=== PATIENT | male | born 1970 | race Caucasian/White ===

== ENCOUNTER 2017-09-07 11:48 | Day surgery (SDC) | payer OTHER ==
[~2017-09-07 11:48] MED LIST: Betamethasone Acetate/Betamethasone Sod Phosphate 30 MG/5 ML MDV ONE; Iopamidol 408 MG/ML 50 ML SDV ONE; Lidocaine 1% 0 ML ONE; Lidocaine 2% 5 ML SDV ONE; Ropivacaine 0.5% 5 MG/ML 30 ML SDV ONE
--- NOTE | 2017-09-07 16:31 | OR ---
SURGEON: Franchesca Saeed D.O. DATE OF PROCEDURE: 09/07/2017 OR STAFF PRESENT: 1. Serge Calixto RN. 2. Molly Mi RN. 3. Debby Templeton RT. WOUND CLASSIFICATION: I. PREOPERATIVE DIAGNOSES: 1. Lumbar facet arthropathy. 2. Lumbar degenerative disk disease. 3. Chronic low back pain. POSTOPERATIVE DIAGNOSES: 1. Lumbar facet arthropathy. 2. Lumbar degenerative disk disease. 3. Chronic low back pain. PROCEDURES PERFORMED: 1. Bilateral L4, L5, S1 medial branch blocks. 2. Fluoroscopic guidance for needle placement. 3. Local with oral valium for sedation. SCREENING QUESTIONS: The patient answered "No" to all the following questions: 1. Are you allergic to iodine, Betadine or latex? 2. Do you have a bleeding disorder? 3. Are you on anti-inflammatories or blood thinners? 4. Do you have any current local or systemic infections? DESCRIPTION OF PROCEDURE: The patient had the procedure thoroughly explained including risks, benefits and alternatives. Consent was signed in my clinic indicating understanding and willingness to proceed. The patient presented to [facility] and was escorted to the dressing room to disrobe and change into a hospital gown. Preoperative history and screening were performed by my nurse. Vital signs were taken and stable. The patient reported that Valium 10 milligrams was taken prior to the procedure. The patient was brought back to the procedure room and placed in the prone position on the procedure room table. A pillow was placed under the abdomen in order to flatten the lumbar lordosis. The back was prepped with ChloraPrep and sterilely draped. All personnel in the procedure room were dressed in appropriate attire including surgical scrubs, head and shoe covers. This was to ensure sterility while in the treatment room. During the time fluoroscopy was in use all personnel in the operating room wore lead pierce with thyroid collars. Sterile technique was used during the procedure. The fluoroscope was positioned to provide a right oblique view. Then, the right L3 medial branch block was begun by anesthetizing the skin and soft tissues with 2 cubic centimeters of 2% Preservative-Free Lidocaine with a 25-gauge 1.5 inch needle. There were no signs of infection at the site of needle skin insertions. Using fluoroscopic guidance a sterile 22-gauge 3.5 inch spinal needle was positioned at the junction of the transverse process with the superior articular process of the L4 vertebral body. Precise needle placement was confirmed by fluoroscopy and 0.2 cubic centimeters of Isovue-200 contrast dye which was injected through microbore tubing under live fluoroscopy and showed no intravascular flow pattern and adequate flow over the target L3 medial branch. Then, 0.5 cubic centimeters of 0.5% Ropivacaine Preservative-Free was injected slowly without complications after negative aspiration. Then, the fluoroscope was positioned to provide a right oblique view for the right L4 medial branch. This was begun by anesthetizing the skin and soft tissues. The fluoroscope was positioned and a sterile 22-gauge 3.5 inch needle was placed at the junction of the transverse process in the superior articular process of the L5 vertebral body. Precise needle placement was confirmed by fluoroscopy. Then, 0.2 cubic centimeters of Isovue-200 contrast dye was injected through microbore tubing under live fluoroscopy and showed no intravascular flow pattern and adequate flow over the target medial branch. After negative aspiration, 0.5 cubic centimeters of 0.5% Ropivacaine was injected without complications. The fluoroscope was then positioned to provide a right L5 dorsal ramus block. This was begun by anesthetizing the skin and soft tissues over the right sacral sulcus. Then, using fluoroscopic guidance, a sterile 22-gauge 3.5 inch spinal needle was positioned at the right sacral ala. Precise needle placement was confirmed by fluoroscopy in AP and oblique views, and 0.2 cubic centimeters of Isovue-200 contrast dye was injected through microbore tubing under live fluoroscopy and showed no intravascular flow pattern and adequate flow over the target nerves. After negative aspiration, 0.5 cubic centimeters of 0.5% Ropivacaine was injected. No complications were noted. Then, attention was turned to the left side. The fluoroscope was positioned to provide a left oblique view for the left L3 medial branch block. This was begun by anesthetizing the skin and soft tissues. Then, a 22-gauge 3.5 inch needle was positioned at the junction of the transverse process and the superior articular process at the left L4 vertebral body. Precise needle placement was confirmed by fluoroscopy with 0.2 cubic centimeters of Isovue-200 contrast dye injected through microbore tubing under live fluoroscopy showing no intravascular flow pattern and adequate flow over the target medial branch of L3 on the left. After negative aspiration, 0.5 cubic centimeters of 0.5% Ropivacaine was injected without complications. The fluoroscope was positioned then to provide a left L4 medial branch block. The skin was anesthetized. Then, a 22-gauge 3.5 inch spinal needle was positioned at the junction of the transverse process in the superior articular process of the L5 vertebral body on the left. Precise needle placement was confirmed by fluoroscopy and with 0.2 cubic centimeters of Isovue-200 contrast dye injected through microbore tubing showing no intravascular flow pattern and adequate flow over the target medial branch of L4 on the left. Then, 0.5 cubic centimeters of 0.5% Ropivacaine was injected after negative aspiration without complications. Then, the fluoroscope was positioned for the left L5 dorsal ramus block. This was begun by anesthetizing the skin and soft tissues. Then, with fluoroscopic guidance a sterile 22-gauge 3.5 inch spinal needle was positioned at the left sacral ala. Precise needle placement was confirmed with 0.2 cubic centimeters of Isovue-200 contrast dye injected through microbore tubing under live fluoroscopy showing no intravascular flow pattern and adequate flow over the target L5 nerve.Then 0.5 cc of ropivicaine was injected after negative aspiration. The procedure was well tolerated and vital signs were stable during and after the procedure. The staff escorted the patient to the recovery area. The patient was given both oral and written discharge and followup instructions. The patient will follow up with a pain diary which will be evaluated over this evening doing things that would normally cause pain. We will evaluate the efficacy of the diagnostic lumbar medial branch blocks as the patient will follow up in the clinic the next day with pain diary. The patient was given both oral and written discharge and followup instructions. The patient voiced understanding including understanding of those signs and symptoms that would require emergency care and knows how to contact the office if there are any questions or concerns in the meantime. PREOPERATIVE PAIN: 06/24. POSTOPERATIVE PAIN: 02/24. LUCIANA / BARBARA /[id number] SUSSY
== END 2017-09-07 14:00 | disposition home or self-care (01) ==
LOC: MW.SDS 11:48
PROVIDERS: ATTEND Anesthesiology
DX: G89.29 Other chronic pain (principal); M51.36 Other intervertebral disc degeneration, lumbar region; M47.816 Spondylosis without myelopathy or radiculopathy, lumbar region; Z88.2 Allergy status to sulfonamides; Z91.013 Allergy to seafood
CPT/HCPCS: 64493; 64494; J0702; J2795; Q9966

== ENCOUNTER 2023-06-12 01:05 | Emergency (ER) | payer OTHER ==
[2023-06-12 01:32] LABS: BASOPHILS ABSOLUTE AUTO 0.11 K/uL (0.00-0.20); EOSINOPHILS ABSOLUTE AUTO 0.44 K/uL (0.00-0.45); EOSINOPHILS PERCENT AUTO 4.1 % (0.0-6.0); HEMATOCRIT 45.1 % (42.0-52.0); HEMOGLOBIN 16.1 g/dL (14.0-18.0); IMMATURE GRAN ABSOLUTE AUTO 0.02 K/uL (0.00-0.05); IMMATURE GRAN PERCENT AUTO 0.2 % (0.0-0.4); LYMPHOCYTES ABSOLUTE AUTO 3.88 K/uL (1.00-4.80); MEAN CORPUSCULAR HEMOGLOBIN 31.8 pg (28.0-32.0); MEAN CORPUSCULAR HGB CONC 35.7 g/dL (32.0-36.0); MEAN PLATELET VOLUME 11.4 fL (9.4-12.4); MONOCYTES PERCENT AUTO 9.3 % (0.0-8.0); NEUTROPHILS ABSOLUTE AUTO 5.32 K/uL (1.80-7.70); NEUTROPHILS PERCENT AUTO 49.4 % (41.0-71.0); PLATELET COUNT,PLT 322 K/uL (150-400); RED BLOOD CELL COUNT 5.07 M/uL (4.52-5.90); WHITE BLOOD CELL COUNT,WBC 10.77 K/uL (3.9-11.3)
[2023-06-12 01:45] LABS: INR 0.99 (0.86-1.11); PTT,PARTIAL THROMBOPLSTIN TIME 23.1 SEC (23.9-30.7)
[2023-06-12] MEDS: Tenecteplase 50 MG Kit IV STA (01:51)
[2023-06-12] MEDS: Enoxaparin 100 MG/1 ML Syringe SUBCUT ONE (01:51)
[2023-06-12] MEDS: Ondansetron 4 MG/2 ML SDV IVPUSH ONE (01:52)
[2023-06-12] MEDS: Labetalol 100 MG/20 ML MDV IVPUSH ONE (01:52)
[2023-06-12] MEDS: Aspirin 81 MG Tab.Chew PO ONE (01:52)
[2023-06-12] MEDS: Sodium Chloride 0.9% 1,000 ML IV ONE (01:52)
[2023-06-12] MEDS: Morphine 4 MG/ML Syringe IVPUSH ONE ×2 (01:53→02:41)
[2023-06-12] MEDS: Clopidogrel 75 MG Tab PO ONE ×2 (01:54→02:52)
[2023-06-12 01:59] LABS: ALANINE AMINOTRANSFERASE,ALT 42 IU/L (14-63); ALBUMIN 3.4 g/dL (3.4-5.0); ALKALINE PHOSPHATASE 82 U/L (46-116); ASPARTATE AMNIOTRANSFERASE,AST 24 IU/L (15-37); BILIRUBIN TOTAL 0.7 mg/dL (0.2-1.0); BLOOD UREA NITROGEN,BUN 12 mg/dL (7.0-18.0); CALCIUM 8.7 mg/dL (8.5-10.1); CARBON DIOXIDE,CO2 24.1 mmol/L (21.0-32.0); CHLORIDE,CL 104 mmol/L (98-107); CREATININE 1.3 mg/dL (0.8-1.3); GLUCOSE RANDOM 208 mg/dL (74-106); MAGNESIUM 1.8 mg/dL (1.8-2.4); POTASSIUM,K 2.9 mmol/L (3.5-5.1); PROTEIN TOTAL,TP 6.8 g/dL (6.4-8.2); SODIUM,NA 141 mmol/L (136-148)
[2023-06-12 02:01] LABS: ESTIMATED GFR 66 mL/min (>60)
[2023-06-12] MEDS: Heparin Sodium 5,000 Units/ML Vial IVPUSH ONE (02:28)
[2023-06-12] MEDS: Heparin Sodium/0.45% NaCl 500 ML IV SCH (02:32)
[2023-06-12] MEDS: Alum Hydro/Mag Hydro/Simeth XS 15 ML, Lidocaine 2% 5 ML PO ONE (02:57)
[2023-06-12] MEDS: Nitroglycerin 0.4 MG Tab.SL SL ONE (03:31)
[2023-06-12] MEDS: Furosemide 20 MG/2 ML VIAL IVPUSH ONE (03:32)
[2023-06-12] MEDS: Etomidate 2 MG/ML 20 ML SDV IVPUSH ONE (04:05)
[2023-06-12] MEDS: Succinylcholine 200 MG/10 ML MDV IV STA (04:06)
[2023-06-12 04:47] LABS: BASE EXCESS ARTERIAL -10.9 (-2.0-3.0); BICARBONATE,ARTERIAL 18 mEq/L (22-26); PCO2 ARTERIAL 51 mmHG (35-45); PO2 ARTERIAL 57 mmHG (80-105)
[2023-06-12] MEDS ORDERED: Norepinephrine Bit/D5W Premix 250 ML IV SCH ×3 (05:45)
[2023-06-12] MEDS ORDERED: propofoL 100 ML IV SCH (05:45)
[2023-06-12] MEDS: Norepinephrine Bit/D5W Premix 250 ML ONE ×3 (06:37)
[2023-06-12] MEDS: fentaNYL/Normal Saline 250 ML ONE (06:37)
[2023-06-12] MEDS: Atropine 0.1 MG/ML 10 ML Syringe IVPUSH ONE (06:38)
[2023-06-12] MEDS: propofoL 100 ML ONE (06:38)
[2023-06-12] MEDS: EPINEPHrine 1 MG/1 ML Amp IVPUSH ONE (06:43)
== END 2023-06-12 05:45 ==
LOC: MW.ED 01:05
DX: I21.3 ST elevation (STEMI) myocardial infarction of unspecified site (principal); I10 Essential (primary) hypertension; E11.9 Type 2 diabetes mellitus without complications; Z88.2 Allergy status to sulfonamides; Z75.8 Other problems related to medical facilities and other health care; Z79.899 Other long term (current) drug therapy
CPT/HCPCS: 31500; 36415; 36600; 43752; 71045; 80053; 82803; 83735; 84484; 85025; 85610; 85730; 93005; 96365; 96366; 96367; 96368; 96375; 96376; 99285; A9270; J0171; J0330; J0461; J1644; J1940; J2270; J2405; J3101; J3490; J7030